=== PATIENT | male | born 1990 | race Caucasian/White ===

== ENCOUNTER 2019-11-28 23:43 | Emergency (ER) | payer SELFPAY ==
[~2019-11-28] VITALS: Ht 167.6 cm; Wt 90.7 kg
[2019-11-29 00:07] VITALS: Ht 167.6 cm; Wt 90.7 kg
[2019-11-29 01:01] LABS: BASOPHIL % 1.2 % (0-2); PLATELET COUNT 245 x10^3mcL (130-400); RED CELL DISTRIBUTION WIDTH 14.4 % (11.5-14.5)
[2019-11-29 01:15] LABS: CALCIUM 9.2 mg/dL (8.5-10.1); CARBON DIOXIDE 25.5 mmol/L (21-32); CHLORIDE SERUM 102 mmol/L (98-107); CREATININE SERUM 0.9 mg/dL (0.7-1.3); GFR1 > 60 mL/min; GLUCOSE SERUM 118 mg/dL (74-106); POTASSIUM SERUM 3.9 mmol/L (3.5-5.1); SODIUM SERUM 138 mmol/L (136-145)
[2019-11-29 01:29] LABS: FREE T4 1.02 ng/dL (0.76-1.46)
[2019-11-29 04:13] LABS: AMPHETAMINE QUAL UR POSITIVE (See below)
[2019-11-30 09:34] VITALS: BP 118/70
== END 2019-11-30 09:34 | disposition home or self-care (01) ==
LOC: ED 23:43
PROVIDERS: Emergency Medicine
DX: F32.9 Major depressive disorder, single episode, unspecified (principal); R45.851 Suicidal ideations; F17.210 Nicotine dependence, cigarettes, uncomplicated; Z90.89 Acquired absence of other organs; Z03.818 Encounter for observation for suspected exposure to other biological agents ruled out
CPT/HCPCS: 84439; G0480; J1200; J1630; J2060; J7030; U0003-CS